=== PATIENT | female | born 1955 | race African-American/Black ===

== ENCOUNTER 2019-01-10 13:38 | Inpatient (IN) | payer OTHER ==
[2019-01-10 14:23] LABS: ADD MAN DIFF? NO
[2019-01-10 14:28] LABS: BASOPHILS % 0.3 % (0.0-2.0); EOSINOPHILS # 0.2 10^3/ul (0.0-0.5); EOSINOPHILS % 2.4 % (0.0-7.0); HEMATOCRIT 42.2 % (37.0-47.0); HEMOGLOBIN 13.6 g/dl (12.0-16.0); LYMPHOCYTES # 2.3 10^3/ul (0.8-2.9); LYMPHOCYTES % 25.4 % (15.0-51.0); MEAN CORPUSCULAR HEMOGLOBIN 27.8 pg (29.0-33.0); MEAN CORPUSCULAR HGB CONC 32.2 g/dl (32.0-37.0); MEAN CORPUSCULAR VOLUME 86.1 fl (82.0-101.0); MEAN PLATELET VOLUME 11.6 fl (7.4-10.4); MONOCYTE # 0.7 10^3/ul (0.3-0.9); MONOCYTES % 7.1 % (0.0-11.0); NEUTROPHIL # 5.9 10^3/ul (1.6-7.5); NEUTROPHILS % 64.5 % (39.0-77.0); PLATELET COUNT 172 10^3/UL (140-415); RED CELL DISTRIBUTION WIDTH 13.2 % (11.5-14.5)
[2019-01-10 14:28] LABS: WHITE BLOOD COUNT 9.1 10^3/ul (4.8-10.8)
[2019-01-10] MEDS: LORAZEPAM 2 MG INJ IV (14:40)
[2019-01-10 14:46] LABS: ANION GAP 7 (5-13); BLOOD UREA NITROGEN 19 mg/dl (7-20); CALCIUM 9.3 mg/dl (8.4-10.2); CARBON DIOXIDE 33 mmol/L (21-31); CHLORIDE 101 mmol/L (97-110); CREATININE 0.48 mg/dl (0.44-1.00); Estimated GFR > 60 mL/min (>60); GLUCOSE 105 mg/dl (70-220); POTASSIUM 4.7 mmol/L (3.5-5.1); SODIUM 141 mmol/L (135-144)
[2019-01-10 14:51] LABS: INR 0.94; PROTIME 12.7 Sec (11.9-14.9)
[2019-01-10] MEDS ORDERED: ONDANSETRON 4 MG INJ IV ×2 (16:00→18:30)
[2019-01-10] MEDS ORDERED: ACETAMINOPHEN 325 MG TAB PO (16:00)
[2019-01-10] MEDS ORDERED: HYDROCODONE/APAP (5/325) TAB PO (18:30)
[2019-01-10] MEDS ORDERED: NACL 0.9% 3 ML SYG IV (18:30)
[2019-01-10] MEDS ORDERED: ACETAMINOPHEN 650 MG SUPP PR (18:30)
[2019-01-10] MEDS: DEXTROSE 5%-0.45% NACL 1,000 ML IV (20:45)
[2019-01-10] MEDS: FAMOTIDINE 20 MG INJ IV (20:50)
[2019-01-11 05:30] LABS: ADD MAN DIFF? NO
[2019-01-11 05:46] LABS: WHITE BLOOD COUNT 6.6 10^3/ul (4.8-10.8)
[2019-01-11 05:46] LABS: BASOPHILS % 0.6 % (0.0-2.0); EOSINOPHILS # 0.3 10^3/ul (0.0-0.5); EOSINOPHILS % 4.2 % (0.0-7.0); HEMATOCRIT 39.7 % (37.0-47.0); HEMOGLOBIN 12.8 g/dl (12.0-16.0); LYMPHOCYTES # 2.1 10^3/ul (0.8-2.9); LYMPHOCYTES % 31.7 % (15.0-51.0); MEAN CORPUSCULAR HEMOGLOBIN 27.4 pg (29.0-33.0); MEAN CORPUSCULAR HGB CONC 32.2 g/dl (32.0-37.0); MEAN PLATELET VOLUME 11.4 fl (7.4-10.4); MONOCYTE # 0.5 10^3/ul (0.3-0.9); MONOCYTES % 8.2 % (0.0-11.0); NEUTROPHIL # 3.6 10^3/ul (1.6-7.5); PLATELET COUNT 175 10^3/UL (140-415); RED BLOOD COUNT 4.67 10^6/ul (4.20-5.40); RED CELL DISTRIBUTION WIDTH 13.2 % (11.5-14.5)
[2019-01-11 05:47] LABS: ALANINE AMINOTRANSFERASE 19 IU/L (13-69); ALBUMIN 3.5 g/dl (3.3-4.9); ALBUMIN/GLOBULIN RATIO 1.09; ALKALINE PHOSPHATASE 58 IU/L (42-121); ANION GAP 6 (5-13); ASPARTATE AMINO TRANSFERASE 21 IU/L (15-46); BILIRUBIN,INDIRECT 0.4 mg/dl (0-1.1); BILIRUBIN,TOTAL 0.4 mg/dl (0.2-1.3); BLOOD UREA NITROGEN 18 mg/dl (7-20); CARBON DIOXIDE 30 mmol/L (21-31); CHLORIDE 105 mmol/L (97-110); Estimated GFR > 60 mL/min (>60); GLUCOSE 91 mg/dl (70-220); MAGNESIUM 1.9 mg/dl (1.7-2.5); PHOSPHORUS 4.1 mg/dl (2.5-4.9); POTASSIUM 3.8 mmol/L (3.5-5.1); SODIUM 141 mmol/L (135-144); TOTAL PROTEIN 6.7 g/dl (6.1-8.1)
[2019-01-11 05:58] LABS: HEMOGLOBIN A1C 5.3 % (0-5.9)
[2019-01-11] MEDS ORDERED: SEVOFLURANE 15 MIN (07:00)
[2019-01-11] MEDS ORDERED: CEFAZOLIN 1 GM INJ (07:00)
[2019-01-11] MEDS: FAMOTIDINE 20 MG INJ IV ×2 (12:13→21:22)
[2019-01-11] MEDS ORDERED: ALBUTEROL 0.083% (NEB) 2.5 MG/3 ML AMP HHN ×2 (13:00→18:30)
[2019-01-11] MEDS: DEXTROSE 5%-0.45% NACL 1,000 ML IV ×3 (15:08→21:07)
[2019-01-11] MEDS: LEVETIRACETAM IV 750 MG in DEXTROSE 5% 100 ML IVPB ×3 (15:58→22:53)
[2019-01-11] MEDS ORDERED: PROPOFOL 20 ML (16:13)
[2019-01-11] MEDS ORDERED: ROCURONIUM 50 MG INJ (16:56)
[2019-01-11] MEDS: POLYMYXIN/BACITRACIN 1L IRRIG (17:05)
[2019-01-11] MEDS: BUPIVACAINE 0.5% (SDV) 30 ML INJ (18:00)
[2019-01-11] MEDS ORDERED: DEXAMETHASONE 4 MG/ML 5 ML INJ (18:07)
[2019-01-11] MEDS ORDERED: NEOSTIGMINE 3 MG/3 ML SYRINGE (18:14)
[2019-01-11] MEDS ORDERED: GLYCOPYRROLATE 0.4 MG INJ (18:14)
[2019-01-11] MEDS ORDERED: hydrALAzine 20 MG INJ IV (18:30)
[2019-01-11] MEDS ORDERED: ONDANSETRON 4 MG INJ IV (18:30)
[2019-01-11] MEDS ORDERED: morphine (1 MG/ML) 10ML SYRINGE IV ×3 (18:30)
[2019-01-11] MEDS ORDERED: EPHEDrine SULFATE 50 MG/5 ML SYG IV (18:30)
[2019-01-11] MEDS ORDERED: KETOROLAC 30 MG INJ IV (18:30)
[2019-01-11] MEDS ORDERED: MIDAZOLAM 1 MG/ML 2 ML INJ IV (18:30)
[2019-01-11] MEDS ORDERED: MEPERIDINE 25 MG INJ IV (18:30)
[2019-01-11] MEDS ORDERED: LABETALOL HCL 20MG INJ IV (18:30)
[2019-01-11] MEDS ORDERED: DIPHENHYDRAMINE 50 MG INJ IV (18:30)
[2019-01-11] MEDS ORDERED: METOCLOPRAMIDE 10 MG INJ IV (18:30)
[2019-01-11 19:08] LABS: ADD UMIC YES; UR ASCORBIC ACID NEGATIVE (NEGATIVE); UR BACTERIA FEW /HPF (NONE SEEN); UR BILIRUBIN (Dip) NEGATIVE (NEGATIVE); UR BLOOD (Dip) 3+ mg/dL (NEGATIVE); UR CLARITY SLIGHTLY CLOUDY (CLEAR); UR COLOR YELLOW (YELLOW); UR GLUCOSE (Dip) 3+ mg/dL (NEGATIVE); UR KETONES (Dip) NEGATIVE (NEGATIVE); UR LEUKOCYTE ESTERASE (Dip) TRACE Leu/ul (NEGATIVE); UR MUCUS FEW /HPF (NONE SEEN); UR NITRITE (Dip) POSITIVE (NEGATIVE); UR RBC 107 /HPF (0-5); UR SPECIFIC GRAVITY (Dip) 1.024 (1.003-1.030); UR TOTAL PROTEIN (Dip) NEGATIVE (NEGATIVE); UR UROBILINOGEN (Dip) NEGATIVE (NEGATIVE); UR WBC 27 /HPF (0-5)
[2019-01-11] MEDS: CEFAZOLIN 1 GM/50 ML (PMX) 50 ML IVPB (21:22)
[2019-01-12 05:18] LABS: ADD MAN DIFF? NO
[2019-01-12 05:27] LABS: BASOPHILS % 0.3 % (0.0-2.0); HEMATOCRIT 37.5 % (37.0-47.0); HEMOGLOBIN 12.2 g/dl (12.0-16.0); LYMPHOCYTES # 0.9 10^3/ul (0.8-2.9); LYMPHOCYTES % 13.4 % (15.0-51.0); MEAN CORPUSCULAR HEMOGLOBIN 27.4 pg (29.0-33.0); MEAN CORPUSCULAR HGB CONC 32.5 g/dl (32.0-37.0); MEAN CORPUSCULAR VOLUME 84.3 fl (82.0-101.0); MEAN PLATELET VOLUME 12.3 fl (7.4-10.4); MONOCYTE # 0.4 10^3/ul (0.3-0.9); MONOCYTES % 5.8 % (0.0-11.0); NEUTROPHIL # 5.1 10^3/ul (1.6-7.5); PLATELET COUNT 167 10^3/UL (140-415); RED BLOOD COUNT 4.45 10^6/ul (4.20-5.40); RED CELL DISTRIBUTION WIDTH 12.9 % (11.5-14.5)
[2019-01-12 05:27] LABS: WHITE BLOOD COUNT 6.4 10^3/ul (4.8-10.8)
[2019-01-12 05:41] LABS: PHOSPHORUS 4.1 mg/dl (2.5-4.9)
[2019-01-12 05:41] LABS: MAGNESIUM 1.6 mg/dl (1.7-2.5)
[2019-01-12 05:43] LABS: ALANINE AMINOTRANSFERASE 16 IU/L (13-69); ALBUMIN 3.4 g/dl (3.3-4.9); ALBUMIN/GLOBULIN RATIO 1.13; ALKALINE PHOSPHATASE 56 IU/L (42-121); ANION GAP 9 (5-13); ASPARTATE AMINO TRANSFERASE 26 IU/L (15-46); BILIRUBIN,INDIRECT 0.4 mg/dl (0-1.1); BILIRUBIN,TOTAL 0.4 mg/dl (0.2-1.3); BLOOD UREA NITROGEN 10 mg/dl (7-20); CARBON DIOXIDE 28 mmol/L (21-31); CHLORIDE 102 mmol/L (97-110); CREATININE 0.48 mg/dl (0.44-1.00); Estimated GFR > 60 mL/min (>60); GLUCOSE 121 mg/dl (70-220); POTASSIUM 4.1 mmol/L (3.5-5.1); SODIUM 139 mmol/L (135-144); TOTAL PROTEIN 6.4 g/dl (6.1-8.1)
[2019-01-12] MEDS: CEFAZOLIN 1 GM/50 ML (PMX) 50 ML IVPB ×2 (06:31→14:53)
[2019-01-12] MEDS: LEVETIRACETAM IV 750 MG in DEXTROSE 5% 100 ML IVPB ×2 (09:29→20:49)
[2019-01-12] MEDS: FAMOTIDINE 20 MG INJ IV ×2 (09:29→20:49)
[2019-01-12] MEDS: ENOXAPARIN 40 MG/0.4 ML SYG SC (09:30)
[2019-01-12] MEDS: DEXTROSE 5%-0.45% NACL 1,000 ML IV (11:29)
[2019-01-12] MEDS: BISACODYL 10 MG SUPP PR (11:31)
[2019-01-12] MEDS: morphine 2 MG INJ IV (20:52)
[2019-01-13 05:20] LABS: ADD MAN DIFF? NO
[2019-01-13 05:24] LABS: WHITE BLOOD COUNT 9.6 10^3/ul (4.8-10.8)
[2019-01-13 05:24] LABS: BASOPHILS % 0.3 % (0.0-2.0); EOSINOPHILS # 0.1 10^3/ul (0.0-0.5); EOSINOPHILS % 1.4 % (0.0-7.0); HEMATOCRIT 34.4 % (37.0-47.0); HEMOGLOBIN 11.2 g/dl (12.0-16.0); LYMPHOCYTES # 2.1 10^3/ul (0.8-2.9); LYMPHOCYTES % 22.3 % (15.0-51.0); MEAN CORPUSCULAR HEMOGLOBIN 27.5 pg (29.0-33.0); MEAN CORPUSCULAR HGB CONC 32.6 g/dl (32.0-37.0); MEAN CORPUSCULAR VOLUME 84.5 fl (82.0-101.0); MONOCYTE # 0.7 10^3/ul (0.3-0.9); MONOCYTES % 7.5 % (0.0-11.0); NEUTROPHIL # 6.5 10^3/ul (1.6-7.5); NEUTROPHILS % 68.2 % (39.0-77.0); PLATELET COUNT 177 10^3/UL (140-415); RED BLOOD COUNT 4.07 10^6/ul (4.20-5.40); RED CELL DISTRIBUTION WIDTH 12.9 % (11.5-14.5)
[2019-01-13 06:00] LABS: ANION GAP 7 (5-13); BLOOD UREA NITROGEN 16 mg/dl (7-20); CALCIUM 8.3 mg/dl (8.4-10.2); CARBON DIOXIDE 28 mmol/L (21-31); CHLORIDE 107 mmol/L (97-110); CREATININE 0.54 mg/dl (0.44-1.00); Estimated GFR > 60 mL/min (>60); GLUCOSE 99 mg/dl (70-220); IRON < 10 ug/dl (35-150); POTASSIUM 3.7 mmol/L (3.5-5.1); SODIUM 142 mmol/L (135-144); TOTAL IRON BINDING CAPACITY 215 ug/dl (241-421)
[2019-01-13] MEDS: FAMOTIDINE 20 MG INJ IV (08:42)
[2019-01-13] MEDS: ENOXAPARIN 40 MG/0.4 ML SYG SC (08:43)
[2019-01-13] MEDS: SENNA/DOCUSATE NA (8.6MG/50MG) TAB PO (09:00)
[2019-01-13] MEDS: LEVETIRACETAM IV 750 MG in DEXTROSE 5% 100 ML IVPB (09:46)
[2019-01-13] MEDS: LEVETIRACETAM 500 MG TAB PO (21:07)
[2019-01-13] MEDS: CALCIUM/VITAMIN D (500/200) TAB PO (21:07)
[2019-01-14 05:26] LABS: WHITE BLOOD COUNT 10.5 10^3/ul (4.8-10.8)
[2019-01-14 05:26] LABS: ADD MAN DIFF? NO; BASOPHILS % 0.3 % (0.0-2.0); EOSINOPHILS # 0.1 10^3/ul (0.0-0.5); EOSINOPHILS % 1.1 % (0.0-7.0); HEMATOCRIT 36.2 % (37.0-47.0); HEMOGLOBIN 12.1 g/dl (12.0-16.0); LYMPHOCYTES # 2.1 10^3/ul (0.8-2.9); LYMPHOCYTES % 19.8 % (15.0-51.0); MEAN CORPUSCULAR HEMOGLOBIN 27.6 pg (29.0-33.0); MEAN CORPUSCULAR HGB CONC 33.4 g/dl (32.0-37.0); MEAN CORPUSCULAR VOLUME 82.6 fl (82.0-101.0); MEAN PLATELET VOLUME 11.5 fl (7.4-10.4); MONOCYTE # 0.8 10^3/ul (0.3-0.9); MONOCYTES % 7.4 % (0.0-11.0); NEUTROPHIL # 7.4 10^3/ul (1.6-7.5); PLATELET COUNT 193 10^3/UL (140-415); RED BLOOD COUNT 4.38 10^6/ul (4.20-5.40); RED CELL DISTRIBUTION WIDTH 13.1 % (11.5-14.5)
[2019-01-14 05:46] LABS: ANION GAP 6 (5-13); BLOOD UREA NITROGEN 10 mg/dl (7-20); CALCIUM 9.2 mg/dl (8.4-10.2); CARBON DIOXIDE 28 mmol/L (21-31); CHLORIDE 105 mmol/L (97-110); Estimated GFR > 60 mL/min (>60); GLUCOSE 106 mg/dl (70-220); SODIUM 139 mmol/L (135-144)
[2019-01-14] MEDS: FAMOTIDINE 20 MG TAB PO (09:14)
[2019-01-14] MEDS: SENNA/DOCUSATE NA (8.6MG/50MG) TAB PO (09:14)
[2019-01-14] MEDS: CALCIUM/VITAMIN D (500/200) TAB PO ×2 (09:14→20:49)
[2019-01-14] MEDS: ENOXAPARIN 40 MG/0.4 ML SYG SC (09:14)
[2019-01-14] MEDS: LEVETIRACETAM 500 MG TAB PO ×2 (09:14→20:49)
[2019-01-15 05:12] LABS: ADD MAN DIFF? NO
[2019-01-15 05:21] LABS: WHITE BLOOD COUNT 9.1 10^3/ul (4.8-10.8)
[2019-01-15 05:21] LABS: BASOPHILS % 0.3 % (0.0-2.0); EOSINOPHILS # 0.2 10^3/ul (0.0-0.5); EOSINOPHILS % 2.3 % (0.0-7.0); HEMATOCRIT 37.3 % (37.0-47.0); HEMOGLOBIN 12.2 g/dl (12.0-16.0); LYMPHOCYTES # 2.4 10^3/ul (0.8-2.9); LYMPHOCYTES % 26.3 % (15.0-51.0); MEAN CORPUSCULAR HEMOGLOBIN 27.4 pg (29.0-33.0); MEAN CORPUSCULAR HGB CONC 32.7 g/dl (32.0-37.0); MEAN CORPUSCULAR VOLUME 83.8 fl (82.0-101.0); MEAN PLATELET VOLUME 11.4 fl (7.4-10.4); MONOCYTE # 0.7 10^3/ul (0.3-0.9); MONOCYTES % 8.1 % (0.0-11.0); NEUTROPHIL # 5.7 10^3/ul (1.6-7.5); NEUTROPHILS % 62.8 % (39.0-77.0); PLATELET COUNT 223 10^3/UL (140-415); RED BLOOD COUNT 4.45 10^6/ul (4.20-5.40); RED CELL DISTRIBUTION WIDTH 13.2 % (11.5-14.5)
[2019-01-15 05:33] LABS: MAGNESIUM 1.9 mg/dl (1.7-2.5)
[2019-01-15 05:33] LABS: PHOSPHORUS 4.6 mg/dl (2.5-4.9)
[2019-01-15 05:53] LABS: ANION GAP 7 (5-13); BLOOD UREA NITROGEN 17 mg/dl (7-20); CALCIUM 9.3 mg/dl (8.4-10.2); CARBON DIOXIDE 30 mmol/L (21-31); CHLORIDE 104 mmol/L (97-110); CREATININE 0.53 mg/dl (0.44-1.00); Estimated GFR > 60 mL/min (>60); GLUCOSE 98 mg/dl (70-220); POTASSIUM 4.1 mmol/L (3.5-5.1); SODIUM 141 mmol/L (135-144)
[2019-01-15] MEDS: FAMOTIDINE 20 MG TAB PO (08:19)
[2019-01-15] MEDS: SENNA/DOCUSATE NA (8.6MG/50MG) TAB PO (08:19)
[2019-01-15] MEDS: LEVETIRACETAM 500 MG TAB PO ×2 (08:19→21:37)
[2019-01-15] MEDS: CALCIUM/VITAMIN D (500/200) TAB PO ×2 (08:19→21:37)
[2019-01-15] MEDS: ENOXAPARIN 40 MG/0.4 ML SYG SC (08:26)
[2019-01-16] MEDS: LEVETIRACETAM 500 MG TAB PO (09:21)
[2019-01-16] MEDS: SENNA/DOCUSATE NA (8.6MG/50MG) TAB PO (09:21)
[2019-01-16] MEDS: CALCIUM/VITAMIN D (500/200) TAB PO (09:22)
[2019-01-16] MEDS: FAMOTIDINE 20 MG TAB PO (09:22)
[2019-01-16] MEDS: ENOXAPARIN 40 MG/0.4 ML SYG SC (09:24)
== END 2019-01-16 14:02 | disposition home health service (06) | DRG 481 ==
LOC: E/R 13:38 → MS1 15:49
PROC: 0QS734Z Reposition Left Upper Femur with Internal Fixation Device, Percutaneous Approach (ICD-10-PCS; principal; 2019-01-11 16:00)
DX: S72.012A Unspecified intracapsular fracture of left femur, initial encounter for closed fracture (principal); Z68.1 Body mass index [BMI] 19.9 or less, adult; M48.56XA Collapsed vertebra, not elsewhere classified, lumbar region, initial encounter for fracture; E46 Unspecified protein-calorie malnutrition; M19.90 Unspecified osteoarthritis, unspecified site; R41.3 Other amnesia; R62.7 Adult failure to thrive; J44.9 Chronic obstructive pulmonary disease, unspecified; M21.052 Valgus deformity, not elsewhere classified, left hip; F03.90 Unspecified dementia, unspecified severity, without behavioral disturbance, psychotic disturbance, mood disturbance, and anxiety; G40.909 Epilepsy, unspecified, not intractable, without status epilepticus; Z87.891 Personal history of nicotine dependence; W19.XXXA Unspecified fall, initial encounter
CPT/HCPCS: 71045; 73520; 73530; 80048; 80053; 81001; 82306; 83036; 83540; 83735; 84100; 84443; 85025; 85610; 86850; 86900; 86901; 87086; 93005; 96374; 97110; 97116; 97162; 97530; 99285-25